=== PATIENT | female | born 1980 | race Caucasian/White ===

== ENCOUNTER 2018-12-04 14:49 | Outpatient (CLI) | payer BC ==
--- NOTE | 2018-12-04 15:20 | RAD ---
EXAM: XR Foot Lt 3 View STANDARD PROVIDED CLINICAL HISTORY: Pain FINDINGS: There is no evidence for fracture or other acute osseous abnormality. Alignment appears anatomic. Selina nt spaces appear preserved. IMPRESSION: No evidence for an acute osseous abnormality or significant arthropathy.
== END 2018-12-04 14:50 | disposition home or self-care (01) ==
LOC: SCSRAD 14:49
PROVIDERS: ATTEND Family Medicine
DX: M79.672 Pain in left foot (principal)